=== PATIENT | female | born 1980 | race Caucasian/White ===

== ENCOUNTER 2020-11-19 16:36 | Emergency (ER) | payer OTHER ==
[2020-11-19 16:45] VITALS: TEMP 98.3; BMI 38.7
[2020-11-19 19:13] LABS: BASO % 1.4 % (0-2.0); EOS % 3.2 % (0-4.5); HEMATOCRIT 30.2 % (32.4-45.2); HEMOGLOBIN 9.2 GM/dL (10.7-15.3); LYMPH % 30.7 % (8-40); MCHC 30.4 g/dl (32.0-36.0); MEAN CELL VOLUME 62.4 fl (80-96); MEAN PLT VOLUME 8.9 fl (7.5-11.1); MONO % 6.4 % (3.8-10.2); NEUT % 58.3 % (42.8-82.8); PLATELET COUNT 200 10^3/uL (134-434); RBC 4.84 M/mm3 (3.60-5.2); RDW 19.1 % (11.6-15.6); WHITE BLOOD COUNT 5.4 K/mm3 (4.0-10.0)
[2020-11-19 19:23] LABS: INR 1.06 (0.83-1.09); PROTHROMBIN TIME (PATIENT) 12.8 SEC (9.7-13.0)
[2020-11-19 19:26] LABS: ACTIVATED PTT 28.1 SECONDS (25.2-36.5)
[2020-11-19 19:38] LABS: CALCIUM 9.4 mg/dL (8.5-10.1)
[2020-11-19 19:39] LABS: ALBUMIN 4.4 g/dl (3.4-5.0); BLOOD UREA NITROGEN 11.2 mg/dL (7-18)
[2020-11-19 19:43] LABS: CREATININE 0.7 mg/dL (0.55-1.3)
[2020-11-19 19:44] LABS: BILIRUBIN,TOTAL 0.6 mg/dL (0.2-1); TOT PROT 9.2 g/dl (6.4-8.2)
[2020-11-19 20:15] LABS: ANISOCYTOSIS 2+; MACROCYTOSIS 0; PLATELET ESTIMATE NORMAL
[2020-11-19 20:27] VITALS: BP 120/76; PULSE 78
== END 2020-11-19 20:27 | disposition home or self-care (01) ==
LOC: JER 16:36
DX: D64.9 Anemia, unspecified (principal); R79.9 Abnormal finding of blood chemistry, unspecified
CPT/HCPCS: 36415; 80053; 82728; 83540; 83550; 85025; 85610; 85730; 86850; 86900; 86901; 93005; 93010; 99284-25

== ENCOUNTER 2023-05-15 13:24 | Emergency (ER) | payer OTHER ==
[2023-05-15 13:51] VITALS: RESP 18; BMI 40.6
[2023-05-15] MEDS ORDERED: ACETAMINOPHEN 1000 MG/100 ML BAG IVPB ONE (15:13)
[2023-05-15] MEDS ORDERED: SODIUM CHLORIDE 1,000 ML IV SCH (15:15)
[2023-05-15] MEDS ORDERED: SODIUM CHLORIDE 1,000 ML IV STA (15:37)
[2023-05-15 15:42] LABS: BASO % 0.4 % (0-2.0); EOS % 2.2 % (0-4.5); HEMATOCRIT 28.7 % (32.4-45.2); HEMOGLOBIN 8.7 GM/dL (10.7-15.3); LYMPH % 12.8 % (8-40); MCH 18.9 pg (25.7-33.7); MCHC 30.2 g/dl (32.0-36.0); MEAN CELL VOLUME 62.5 fl (80-96); MEAN PLT VOLUME 8.1 fl (7.5-11.1); MONO % 5.7 % (3.8-10.2); NEUT % 78.9 % (42.8-82.8); PLATELET COUNT 194 10^3/uL (134-434); RBC 4.59 M/mm3 (3.60-5.2); RDW 19.7 % (11.6-15.6)
[2023-05-15 15:45] LABS: EPI CELLS 21 /uL (0-25.1); HYALINE CASTS 1 /uL (0-3.1); PH,URINE 5.5 (5.0-8.0); URINE APPEARANCE CLEAR; URINE BACTERIA 763 /uL (0-1359); URINE BILIRUBIN NEGATIVE (NEGATIVE); URINE COLOR YELLOW; URINE GLUCOSE (UA) NEGATIVE (NEGATIVE); URINE KETONE NEGATIVE (NEGATIVE); URINE LEUK ESTERASE TRACE (NEGATIVE); URINE NITRITE NEGATIVE (NEGATIVE); URINE PROTEIN NEGATIVE (NEGATIVE); URINE UROBILINOGEN 0.2 mg/dL (0.2-1.0); URINE WBC 6 /uL (0-25.8)
[2023-05-15] MEDS ORDERED: ACETAMINOPHEN INJECTION 100 ML IVPB ONE (15:46)
[2023-05-15 15:47] LABS: HCG,QUALITATIVE URINE Negative
[2023-05-15 15:48] LABS: URINE RBC 23.9 /uL (0-23.9)
[2023-05-15 16:10] LABS: ANISOCYTOSIS 3+; MACROCYTOSIS 0
[2023-05-15 16:53] VITALS: BP 112/67; PULSE 85; TEMP 98.8
[2023-05-15 17:14] LABS: POTASSIUM 3.8 mmol/L (3.5-5.1)
[2023-05-15 17:17] LABS: ALBUMIN 3.8 g/dl (3.4-5.0); BLOOD UREA NITROGEN 7.5 mg/dL (7-18); CALCIUM 8.4 mg/dL (8.5-10.1)
[2023-05-15 17:20] LABS: CREATININE 0.7 mg/dL (0.55-1.3)
[2023-05-15 17:22] LABS: BILIRUBIN,TOTAL 0.4 mg/dL (0.2-1); TOT PROT 8.6 g/dl (6.4-8.2)
== END 2023-05-15 17:48 | disposition home or self-care (01) ==
LOC: JER 13:24
PROC: 3E033NZ Introduction of Analgesics, Hypnotics, Sedatives into Peripheral Vein, Percutaneous Approach (ICD-10-PCS; principal; 2023-05-15)
PROC: 3E0337Z Introduction of Electrolytic and Water Balance Substance into Peripheral Vein, Percutaneous Approach (ICD-10-PCS; 2023-05-15)
DX: R53.1 Weakness (principal); R42 Dizziness and giddiness; R53.83 Other fatigue; D50.9 Iron deficiency anemia, unspecified; Z20.822 Contact with and (suspected) exposure to COVID-19
CPT/HCPCS: 0241U-QW; 36415; 80053; 81003; 82728; 83540; 83550; 84466; 84703; 85025; 93005; 93010; 99284-25